=== PATIENT | male | born 1955 | race Caucasian/White ===

== ENCOUNTER 2018-05-28 09:01 | Observation (INO) ==
[2018-05-28] MEDS ORDERED: Aspirin 325 MG Tablet PO ONE (09:28)
--- NOTE | 2018-05-28 09:46 | ED ---
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 He states he was started on low-dose Cardizem to help prevent this but after wearing an official Holter monitor and having episodes of pauses his physician stopped the Cardizem. He states that his appointment with Dr. Valladares was moved up to Tuesday but given he started developing symptoms of generalized weakness and palpitations and chest pressure they advised him to come in now. He states his primary care physician is Dr. Sharma. He states his last stress test was a couple years ago and he believes okay. complaint: other (holter monitor with pauses per patient) Complete Quality Measures for STEMI Alert Patients STEMI Alert: No Onset (ago): day(s) Duration: intermittent Quality: tightness Pain radiation: none Relieving factors: nothing Exacerbating factors: movement Associated symptoms: other (general weakness) Treatments prior to arrival chest pain: none Related Data Home Medications Medication Instructions Recorded Confirmed atorvastatin 40 mg PO HS 05/28/18 05/28/18 levothyroxine 150 mcg PO DAILY 05/28/18 05/28/18 Allergies Allergy/AdvReac Type Severity Reaction Status Date / Time No Known Allergies Allergy Unverified 05/28/18 09:28 Review of Systems Except as stated in HPI: all other systems reviewed are negative [facility] Medical History Medical History High cholesterol (Acute) Hypotension (Acute) Hypothyroidism (Acute) SVT (supraventricular tachycardia) (Acute) Surgical History Surgical History History of hand surgery (Acute) Hx of tonsillectomy (Acute) Social History Social History Substance History: No History of Abuse Second Hand Smoke Exposure: No Smoking Status: Former smoker How Often Do You Have a Drink Containing Alcohol: Never Recent Travel in [facility] within the Last 8 Weeks: No Recent Out of Country Travel within the Last 8 Weeks: No Immunization History Tetanus Immunization: >5 Years Hx Influenza Vaccine This Season: No Exam Narrative Exam Narrative: GENERAL: 63-year-old male in no apparent distress SKIN: Focused skin assessment warm/dry. HEAD: Atraumatic. Normocephalic. EYES: Pupils equal and round. No scleral icterus. No injection or drainage. ENT: No nasal bleeding or discharge. Mucous membranes pink and moist. NECK: Trachea midline. No JVD. CARDIOVASCULAR: Regular rate and rhythm. No murmur appreciated. RESPIRATORY: No accessory muscle use. Clear to auscultation. Breath sounds equal bilaterally. MUSCULOSKELETAL: No obvious deformities. No clubbing. No cyanosis. NEUROLOGICAL: Awake and alert. Motor grossly within normal limits. Normal speech. PSYCHIATRIC: Appropriate mood and affect; insight and judgment normal. Course Hospital Course: Patient updated and agrees to admission Reevaluation(s) Reevaluation #1: patient updated and agrees to admit Consultations Consultation #1: dr sharma states had an episode with 5.3 second run of 2 non conducted p waves called pause and thinks more heart block, will fax strip Consultation #2: dr bhakta agrees to admit, requests consult to dr valladares be placed in computer Initial Documented Vital Signs Temperature 97.8 F 05/28/18 09:05 Pulse Rate 68 05/28/18 09:05 Respiratory Rate 16 05/28/18 09:05 Blood Pressure 156/85 H 05/28/18 09:05 Pulse Oximetry 97 05/28/18 09:05 Last Documented Vital Signs Temperature 97.8 F 05/28/18 09:05 Pulse Rate 64 05/28/18 09:30 Respiratory Rate 18 05/28/18 09:30 Blood Pressure 139/83 05/28/18 09:30 Pulse Oximetry 96 05/28/18 10:36 Medical Decision Making MDM Narrative Medical decision making narrative: Will check blood work, imaging and he will need admission to the hospital for further care. Differential Diagnosis Differential Diagnosis: Heart block, OH, musculoskeletal, gastritis, bradycardia Lab Data Lab results reviewed: Yes I reviewed the patient's lab results. Result diagrams: 05/28/18 09:30 05/28/18 09:30 Lab Results 05/28/18 05/28/18 05/28/18 Range/Units 09:30 09:30 09:30 WBC 6.8 (4.0-11.0) th/mm3 RBC 4.87 (4.50-5.90) mil/mm3 Hgb 15.3 (13.0-17.0) gm/dL Hct 44.9 (39.0-51.0) % MCV 92.2 (80.0-100.0) fL MCH 31.4 (27.0-34.0) pg MCHC 34.0 (32.0-36.0) % RDW 13.8 (11.6-17.2) % Plt Count 222 (150-450) th/mm3 MPV 7.9 (7.0-11.0) fL Neut % (Auto) 58.8 (16.0-70.0) % Lymph % (Auto) 27.8 (9.0-44.0) % [place] % (Auto) 10.0 H (0.0-8.0) % Eos % (Auto) 2.7 (0.0-4.0) % Baso % (Auto) 0.7 (0.0-2.0) % Neut # (Auto) 4.0 (1.8-7.7) th/mm3 Lymph # (Auto) 1.9 (1.0-4.8) th/mm3 [place] # (Auto) 0.7 (0.0-0.9) th/mm3 Eos # (Auto) 0.2 (0.0-0.4) th/mm3 Baso # (Auto) 0.0 (0.0-0.2) th/mm3 WBC Differential . Differential Comment Auto diff final PT 10.6 (9.8-11.6) sec INR 1.0 Ratio APTT 22.8 L (24.3-30.1) sec Sodium 141 (136-145) meq/L Potassium 4.4 (3.5-5.1) meq/L Chloride 108 H (98-107) meq/L Carbon Dioxide 27.3 (21.0-32.0) meq/L Anion Gap 6 (5-15) meq/L BUN 20 H (7-18) mg/dL Creatinine 0.99 (0.60-1.30) mg/dL Estimated GFR 76 L (>89) mL/min Random Glucose 91 (74-106) mg/dL Calcium 9.1 (8.5-10.1) mg/dL Magnesium 2.5 (1.5-2.5) mg/dL Total Bilirubin 0.6 (0.2-1.0) mg/dL AST 19 (15-37) U/L ALT 27 (12-78) U/L Alkaline Phosphatase 79 (45-117) U/L Total Creatine Kinase 209 (39-308) U/L CK-MB (CK-2) 1.0 (0.5-3.6) ng/mL Troponin I Less than 0.02 L (0.02-0.05) ng/mL Total Protein 7.5 (6.4-8.2) g/dL Albumin 3.9 (3.4-5.0) g/dL Imaging Data Attestation: I personally reviewed and interpreted this imaging study as follows : Radiologist's impression: Chest X-Ray 05/28/18 09:28 CONCLUSION: No acute cardiopulmonary disease. Discharge Plan Discharge Disposition Patient Disposition: 30 Still Patient Discharge Condition Condition: Stable Discharge Details Diagnosis: Abnormal Holter monitor finding, Chest pain, Generalized weakness Physicians Team ED Provider: Bridget Yang Primary Care Provider: UNKNOWN, Attending Provider: Federico Bhakta Other Providers: Alexia Valladares Status ED Status: Admitted Observation Patient
[2018-05-28 09:50] LABS: Baso % (Auto) 0.7 % (0.0-2.0); Eos # (Auto) 0.2 th/mm3 (0.0-0.4); Eos % (Auto) 2.7 % (0.0-4.0); Hematocrit 44.9 % (39.0-51.0); Hemoglobin 15.3 gm/dL (13.0-17.0); Lymph # (Auto) 1.9 th/mm3 (1.0-4.8); Lymph % (Auto) 27.8 % (9.0-44.0); Mean Corpuscular Hemoglobin 31.4 pg (27.0-34.0); Mean Corpuscular Volume 92.2 fL (80.0-100.0); Mean Platelet Volume 7.9 fL (7.0-11.0); Mono # (Auto) 0.7 th/mm3 (0.0-0.9); Neut % (Auto) 58.8 % (16.0-70.0); Platelet Count 222 th/mm3 (150-450); Red Blood Count 4.87 mil/mm3 (4.50-5.90); Red Cell Distribution Width 13.8 % (11.6-17.2); White Blood Count 6.8 th/mm3 (4.0-11.0)
--- NOTE | 2018-05-28 09:59 | XR ---
EXAM DATE: 05/28/2018 9:51 AM EDT AGE/SEX: 63 years / Male INDICATIONS: Left sided chest tightness and tachycardia. CLINICAL DATA: This is the patient's initial encounter. Patient reports that signs and symptoms have been present for 1 week and indicates a pain score of 0/10. MEDICAL/SURGICAL HISTORY: None. None. COMPARISON: No prior exams available for comparison. FINDINGS: A single AP view of the chest demonstrates the lungs to be symmetrically aerated without evidence of mass, infiltrate or effusion. There is mild bullous change in right lung apex. The cardiomediastinal contours are unremarkable. Osseous structures are intact. There are multiple overlying electrocardi ogram leads. CONCLUSION: No acute cardiopulmonary disease. Electronically signed by: Chidi Sosa MD 05/28/2018 9:58 AM EDT
[2018-05-28 10:04] LABS: Activated Partial Thrombo Time 22.8 sec (24.3-30.1); Prothrombin Time 10.6 sec (9.8-11.6)
[2018-05-28 10:10] LABS: Albumin 3.9 g/dL (3.4-5.0); Anion Gap 6 meq/L (5-15); Aspartate Aminotransferase 19 U/L (15-37); Blood Urea Nitrogen 20 mg/dL (7-18); Calcium 9.1 mg/dL (8.5-10.1); Carbon Dioxide 27.3 meq/L (21.0-32.0); Chloride 108 meq/L (98-107); Glomerular Filtration Rate 76 mL/min (>89); Glucose,Random 91 mg/dL (74-106); Magnesium 2.5 mg/dL (1.5-2.5); Potassium 4.4 meq/L (3.5-5.1); Sodium 141 meq/L (136-145)
[2018-05-28 10:11] LABS: Alanine Aminotransferase 27 U/L (12-78)
[2018-05-28 10:15] LABS: Alkaline Phosphatase 79 U/L (45-117); Creatine Kinase 209 U/L (39-308); Total Protein 7.5 g/dL (6.4-8.2)
[2018-05-28] MEDS ORDERED: Bisacodyl 10 MG Supp RECTAL PRN (12:42)
[2018-05-28] MEDS: Sod Chloride 0.9% Inj 1,000 ML IV.CONT SCH (14:19)
--- NOTE | 2018-05-28 15:41 | P.HPIM ---
History of Present Illness Primary Care Physician: UNKNOWN History of Present Illness: 63-year-old male history of hyperthyroidism, hyperlipidemia, recent diagnosis of SVT who is sent in by his primary care due to 5.5 second pause on Holter monitor. Patient reports feeling all right. Denies any chest pain or shortness of breath. Denies nausea vomiting. Patient was previously on diltiazem, however this has been discontinued 4 days ago. Patient denies any fevers, chills, nausea, vomiting, diarrhea, constipation. Patient has appointment to see Dr. Adair tomorrow. Patient reports that SVT previously occurred only while exercising. Review of Systems Performed and negative except for HPI and past medical history PMFSH - History History Provided By: Patient - Medical History Medical History: Medical History (Last Reviewed 05/28/18 @ 09:45 by Bridget Yang MD) High cholesterol Hypotension Hypothyroidism SVT (supraventricular tachycardia) - Surgical History Surgical History: Surgical History (Last Reviewed 05/28/18 @ 09:45 by Bridget Yang MD) History of hand surgery Hx of tonsillectomy - Tobacco History Second Hand Smoke Exposure: No Tobacco Use In Past 30 Days: No Smoking Status: Former smoker - Alcohol History How Often Do You Have a Drink Containing Alcohol: Never - Substance Use History Substance History: No History of Abuse - Travel History Recent Travel in the [place] Within the Last 8 Weeks: No Recent Travel Out of the Country Within the Last 8 Weeks: No - Immunization History Tetanus Immunization: >5 Years Hx Influenza Vaccine This Season: No Medications and Allergies Active Medications: Active Medications Al Hydroxide/Mg Hydroxide (Milk Of Magnesia Liq) 30 ml PO Q12H PRN PRN Reason: Mild Constipation Bisacodyl (Dulcolax Supp) 10 mg RECTAL DAILY PRN PRN Reason: SEVERE CONSITIPATION Sodium Chloride (Ns Inj) 1,000 mls @ 40 mls/hr IV.CONT .Q24H NORMA Last Admin: 05/28/18 14:19 Dose: 40 mls/hr Lactulose (Lactulose Liq) 30 ml PO DAILY PRN PRN Reason: SEVERE CONSITIPATION Sennosides (Senokot) 17.2 mg PO Q12H PRN PRN Reason: Moderate Constipation Sodium Chloride (Ns Flush) 2 ml IV.FLUSH UNSCH PRN PRN Reason: FLUSH AFTER USING IV ACCESS Last Admin: 05/28/18 09:37 Dose: 2 ml Temazepam (Restoril) 15 mg PO HS PRN PRN Reason: INSOMNIA Allergies Allergy/AdvReac Type Severity Reaction Status Date / Time No Known Allergies Allergy Unverified 05/28/18 09:28 Home Medications Medication Instructions Recorded Confirmed Type atorvastatin 40 mg PO HS 05/28/18 05/28/18 History levothyroxine 150 mcg PO DAILY 05/28/18 05/28/18 History Exam Vital signs: Vital Signs 05/28/18 09:05 05/28/18 09:28 05/28/18 09:30 Temperature 97.8 F Pulse Rate 68 64 Respiratory Rate 16 18 Blood Pressure 156/85 H 139/83 Pulse Oximetry 97 96 96 05/28/18 10:36 05/28/18 13:00 05/28/18 14:00 Temperature Pulse Rate 60 59 L Respiratory Rate 16 16 Blood Pressure 120/74 149/78 H Pulse Oximetry 96 98 99 Intake & Output 05/27/18 05/28/18 05/28/18 18:59 06:59 18:59 Weight 104.326 kg Narrative: GENERAL: Patient sitting up in bed. Appears comfortable. Alert and oriented 3. SKIN: Warm and dry. HEAD: Normocephalic. EYES: No scleral icterus. No injection or drainage. NECK: Supple, trachea midline. No JVD or lymphadenopathy. CARDIOVASCULAR: Regular rate and rhythm without murmurs, gallops, or rubs. RESPIRATORY: Breath sounds equal bilaterally. No accessory muscle use. GASTROINTESTINAL: Abdomen soft, non-tender, nondistended. MUSCULOSKELETAL: No cyanosis, or edema. BACK: Nontender without obvious deformity. No CVA tenderness. Results - Labs CBC & Chem 7: 05/28/18 09:30 05/28/18 09:30 Labs: Short CBC 05/28/18 Range/Units 09:30 WBC 6.8 (4.0-11.0) th/mm3 Hgb 15.3 (13.0-17.0) gm/dL Hct 44.9 (39.0-51.0) % Plt Count 222 (150-450) th/mm3 BMP 05/28/18 09:30 Sodium 141 Potassium 4.4 Chloride 108 H Carbon Dioxide 27.3 BUN 20 H Creatinine 0.99 Calcium 9.1 Cardiac Enzymes 05/28/18 Range/Units 09:30 Total Creatine Kinase 209 (39-308) U/L CK-MB (CK-2) 1.0 (0.5-3.6) ng/mL Troponin I Less than 0.02 L (0.02-0.05) ng/mL Liver Function 05/28/18 Range/Units 09:30 Total Bilirubin 0.6 (0.2-1.0) mg/dL AST 19 (15-37) U/L ALT 27 (12-78) U/L Alkaline Phosphatase 79 (45-117) U/L Albumin 3.9 (3.4-5.0) g/dL - Imaging Impressions Chest X-Ray 05/28/18 09:28 CONCLUSION: No acute cardiopulmonary disease. Caprini VTE Risk Assessment Caprini VTE Risk Assessment: Moderate/High Risk (score >= 2) Caprini Risk Assessment Model: Point Value = 1 Point Value = 2 Point Value = 3 Point Value = 5 Age 41-60 Minor surgery BMI > 25 kg/m2 Swollen legs Varicose veins or History of unexplained or recurrent spontaneous Oral contraceptives or hormone replacement Sepsis (< 1 month) Serious lung disease, including pneumonia (< 1 month) Abnormal pulmonary function Acute myocardial infarction Congestive heart failure (< 1 month) History of inflammatory bowel disease Medical patient at bed rest Age 61-74 Arthroscopic surgery Major open surgery (> 45 min) Laparoscopic surgery (> 45 min) Malignancy Confined to bed (> 72 hours) Immobilizing plaster cast Central venous access Age >= 75 History of VTE Family history of VTE Factor V Leiden Prothrombin [id number] Lupus anticoagulant Anticardiolipin antibodies Elevated serum homocysteine Heparin-induced thrombocytopenia Other congenital or acquired thrombophilia Stroke (< 1 month) Elective arthroplasty Hip, pelvis, or leg fracture Acute spinal cord injury (< 1 month) Prophylaxis Regimen: Total Risk Factor Score Risk Level Prophylaxis Regimen 0-1 Low Early ambulation 2 Moderate Order ONE of the following: *Sequential Compression Device (SCD) *Heparin 5000 units SQ BID 3-4 Higher Order ONE of the following medications: *Heparin 5000 units SQ TID *Enoxaparin/Lovenox 40 mg SQ daily (WT < 150 kg, CrCl > 30 mL/min) *Enoxaparin/Lovenox 30 mg SQ daily (WT < 150 kg, CrCl > 10-29 mL/min) *Enoxaparin/Lovenox 30 mg SQ BID (WT < 150 kg, CrCl > 30 mL/min) AND/OR *Sequential Compression Device (SCD) 5 or more Highest Order ONE of the following medications: *Heparin 5000 units SQ TID (Preferred with Epidurals) *Enoxaparin/Lovenox 40 mg SQ daily (WT < 150 kg, CrCl > 30 mL/min) *Enoxaparin/Lovenox 30 mg SQ daily (WT < 150 kg, CrCl > 10-29 mL/min) *Enoxaparin/Lovenox 30 mg SQ BID (WT < 150 kg, CrCl > 30 mL/min) AND *Sequential Compression Device (SCD) Assessment and Plan - Plan //5.5 second pause on Holter monitor //History of SVT = Chest x-ray with no acute disease. = EKG personally reviewed and unremarkable. No ST elevation. -Advised patient not to exercise. Will monitor in hospital. Consult electrophysiology Hyperlipidemia. Chronic. Continue home medications Hypothyroidism. Chronic. Check TSH. Continue home medications. Discharge Planning: Discharge home when cleared by cardiology. H&P: Quality - VTE Deep Vein Thrombosis/Pulmonary Embolism Present on Admission: Yes
[2018-05-28 17:56] LABS: Creatine Kinase 165 U/L (39-308)
--- NOTE | 2018-05-28 19:03 | MB ---
cc: Jose Ramon Juarez MD DATE: 05/28/2018 REASON FOR CONSULTATION: Abnormal Holter monitor. HISTORY OF PRESENT ILLNESS: The patient is a pleasant 63-year-old gentleman who sees my partner, Dr. Ford, who apparently has a history of SVT and has been wearing an outpatient Holter monitor. This monitor had remote telemetry and several times he has been called due to pauses seen on telemetry while he was sleeping, apparently up to 5 seconds. He started getting nervous because of these reports and mentioned it to his primary care physician, who directed him to the emergency department. He was actually asymptomatic during all of this. He does note his heart rate goes up fast while he bicycles and believes this is his SVT, but he was asymptomatic during the pauses, which occurred during sleep. He is currently asymptomatic. No chest pain, shortness of breath, lightheadedness, dizziness or syncope. PAST MEDICAL HISTORY: SVT. CURRENT MEDICATIONS: Lactulose, Restoril. ALLERGIES: NO KNOWN DRUG ALLERGIES. PHYSICAL EXAMINATION: VITAL SIGNS: Afebrile, pulse 60, respiratory rate 16, BP 115/73, saturating 95% on room air. GENERAL: Pleasant gentleman in no distress. NECK: No JVD. LUNGS: Clear to auscultation bilaterally. CARDIOVASCULAR: Regular rate and rhythm. No murmurs appreciated. ABDOMEN: Benign. EXTREMITIES: No edema. LABORATORY DATA: White count 6.8, hematocrit 44.9, platelets 222. INR is 1.0. Sodium 141, potassium 4.4, chloride 108, bicarbonate 27.3, BUN 20, creatinine 0.99, glucose 91. Cardiac enzymes are negative x 1. ECHOCARDIOGRAM: Shows sinus rhythm, with no acute ST or T-wave changes. IMPRESSION AND PLAN: Abnormal Holter monitor. The patient apparently had pauses on his Holter monitor for which he became concerned and is now in the emergency department, though he is asymptomatic. He will be kept n.p.o. past midnight in case Dr. Ford wishes to proceed with any procedure tomorrow. Otherwise, he is clinically stable and can continue his home medications without the diltiazem which was recently added. Thank you again for the opportunity to participate in this patient's care. MD JUAN JOSÉ Broderick/LULU , 04:25 PM , 07:01 PM
[2018-05-28] MEDS ORDERED: Temazepam 15 MG Capsule PO PRN (21:00)
[2018-05-28 21:15] LABS: Creatine Kinase 151 U/L (39-308)
[2018-05-29 07:20] LABS: Baso % (Auto) 0.7 % (0.0-2.0); Eos # (Auto) 0.2 th/mm3 (0.0-0.4); Eos % (Auto) 3.2 % (0.0-4.0); Hematocrit 43.2 % (39.0-51.0); Hemoglobin 14.9 gm/dL (13.0-17.0); Lymph # (Auto) 1.8 th/mm3 (1.0-4.8); Lymph % (Auto) 28.9 % (9.0-44.0); Mean Corpuscular HGB Conc 34.6 % (32.0-36.0); Mean Corpuscular Hemoglobin 32.3 pg (27.0-34.0); Mean Corpuscular Volume 93.4 fL (80.0-100.0); Mono # (Auto) 0.5 th/mm3 (0.0-0.9); Mono % (Auto) 7.9 % (0.0-8.0); Neut # (Auto) 3.7 th/mm3 (1.8-7.7); Neut % (Auto) 59.3 % (16.0-70.0); Platelet Count 218 th/mm3 (150-450); Red Blood Count 4.62 mil/mm3 (4.50-5.90); Red Cell Distribution Width 13.9 % (11.6-17.2); White Blood Count 6.3 th/mm3 (4.0-11.0)
[2018-05-29 07:45] LABS: Alanine Aminotransferase 25 U/L (12-78); Albumin 3.7 g/dL (3.4-5.0); Anion Gap 4 meq/L (5-15); Aspartate Aminotransferase 16 U/L (15-37); Blood Urea Nitrogen 18 mg/dL (7-18); Calcium 8.8 mg/dL (8.5-10.1); Carbon Dioxide 29.5 meq/L (21.0-32.0); Chloride 109 meq/L (98-107); Glomerular Filtration Rate 84 mL/min (>89); Glucose,Random 89 mg/dL (74-106); Potassium 4.4 meq/L (3.5-5.1); Sodium 142 meq/L (136-145)
[2018-05-29 07:48] LABS: Alkaline Phosphatase 76 U/L (45-117); Total Protein 6.9 g/dL (6.4-8.2)
--- NOTE | 2018-05-29 09:16 | P.PN ---
Subjective Interval history: Follow up Visit SVT, Holter monitor pauses. Patient examined today. Reports he is doing okay. Denies chest pain, palpitations, headaches, dizziness. Denies pain and discomfort. Denies SOB/ dyspnea. Denies fevers, chills, n/v/ d. Denies dysuria. Physical Exam Vital signs: Vital Signs 05/28/18 09:28 05/28/18 09:30 05/28/18 10:36 Temperature Pulse Rate 64 Respiratory Rate 18 Blood Pressure 139/83 Pulse Oximetry 96 96 96 05/28/18 13:00 05/28/18 14:00 05/28/18 15:54 Temperature 97.9 F Pulse Rate 60 59 L 60 Respiratory Rate 16 16 16 Blood Pressure 120/74 149/78 H 116/73 Pulse Oximetry 98 99 95 05/28/18 17:26 05/28/18 19:45 05/28/18 20:00 Temperature 98.5 F Pulse Rate 67 62 63 Respiratory Rate 17 Blood Pressure 135/69 Pulse Oximetry 95 05/28/18 23:56 05/29/18 00:00 05/29/18 04:00 Temperature 98.3 F 98 F Pulse Rate 56 L 72 62 Respiratory Rate 17 17 Blood Pressure 101/55 L 91/53 L Pulse Oximetry 95 94 L 05/29/18 04:29 05/29/18 07:26 05/29/18 07:57 Temperature 98.0 F Pulse Rate 55 L 64 61 Respiratory Rate 16 Blood Pressure 122/70 Pulse Oximetry 98 Intake & Output 05/28/18 05/29/18 05/29/18 18:59 06:59 18:59 Weight 104.326 kg Other: # Voids 1 3 Narrative: GENERAL: This is a well-nourished, well-developed patient, in no apparent distress. SKIN: Warm and dry HEENT: Normocephalic. Pupils equal round and reactive. Nose without bleeding. Airway patent. NECK: Trachea midline. No JVD. Supple. CARDIOVASCULAR: Regular rate and rhythm without murmurs, gallops, or rubs. RESPIRATORY: Clear to auscultation. Breath sounds equal bilaterally. No wheezes , rales, or rhonchi. GASTROINTESTINAL: Abdomen soft, non-tender, nondistended. Bowel Sounds normoactive x4. MUSCULOSKELETAL: Extremities without clubbing, cyanosis, or edema. NEUROLOGICAL: Awake and alert. Oriented to time, place, person. No focal neuro deficit. Moves all extremities. Normal speech. Results - Labs CBC & Chem 7: 05/29/18 06:56 05/29/18 06:56 Laboratory Results - last 24 hr 05/28/18 05/28/18 05/28/18 09:30 09:30 09:30 WBC 6.8 RBC 4.87 Hgb 15.3 Hct 44.9 MCV 92.2 MCH 31.4 MCHC 34.0 RDW 13.8 Plt Count 222 MPV 7.9 Neut % (Auto) 58.8 Lymph % (Auto) 27.8 [place] % (Auto) 10.0 H Eos % (Auto) 2.7 Baso % (Auto) 0.7 Neut # (Auto) 4.0 Lymph # (Auto) 1.9 [place] # (Auto) 0.7 Eos # (Auto) 0.2 Baso # (Auto) 0.0 WBC Differential . Differential Comment Auto diff final PT 10.6 INR 1.0 APTT 22.8 L Sodium 141 Potassium 4.4 Chloride 108 H Carbon Dioxide 27.3 Anion Gap 6 BUN 20 H Creatinine 0.99 Estimated GFR 76 L Random Glucose 91 Calcium 9.1 Magnesium 2.5 Total Bilirubin 0.6 AST 19 ALT 27 Alkaline Phosphatase 79 Total Creatine Kinase 209 CK-MB (CK-2) 1.0 Troponin I Less than 0.02 L Total Protein 7.5 Albumin 3.9 TSH 05/28/18 05/28/18 05/28/18 09:30 15:44 20:01 WBC RBC Hgb Hct MCV MCH MCHC RDW Plt Count MPV Neut % (Auto) Lymph % (Auto) [place] % (Auto) Eos % (Auto) Baso % (Auto) Neut # (Auto) Lymph # (Auto) [place] # (Auto) Eos # (Auto) Baso # (Auto) WBC Differential Differential Comment PT INR APTT Sodium Potassium Chloride Carbon Dioxide Anion Gap BUN Creatinine Estimated GFR Random Glucose Calcium Magnesium Total Bilirubin AST ALT Alkaline Phosphatase Total Creatine Kinase 165 151 CK-MB (CK-2) Troponin I Less than 0.02 L Less than 0.02 L Total Protein Albumin TSH 1.460 05/29/18 05/29/18 06:56 06:56 WBC 6.3 RBC 4.62 Hgb 14.9 Hct 43.2 MCV 93.4 MCH 32.3 MCHC 34.6 RDW 13.9 Plt Count 218 MPV 8.0 Neut % (Auto) 59.3 Lymph % (Auto) 28.9 [place] % (Auto) 7.9 Eos % (Auto) 3.2 Baso % (Auto) 0.7 Neut # (Auto) 3.7 Lymph # (Auto) 1.8 [place] # (Auto) 0.5 Eos # (Auto) 0.2 Baso # (Auto) 0.0 WBC Differential . Differential Comment Auto diff final PT INR APTT Sodium 142 Potassium 4.4 Chloride 109 H Carbon Dioxide 29.5 Anion Gap 4 L BUN 18 Creatinine 0.91 Estimated GFR 84 L Random Glucose 89 Calcium 8.8 Magnesium Total Bilirubin 0.6 AST 16 ALT 25 Alkaline Phosphatase 76 Total Creatine Kinase CK-MB (CK-2) Troponin I Total Protein 6.9 D Albumin 3.7 TSH - Imaging Impressions Chest X-Ray 05/28/18 09:28 CONCLUSION: No acute cardiopulmonary disease. Assessment and Plan - Plan 63-year-old male history of hyperthyroidism, hyperlipidemia, recent diagnosis of SVT who is sent in by his primary care due to 5.5 second pause on Holter monitor. History SVT He has 5.5 second pause on outpatient Holter - EKG reviewed unremarkable -DC Diltiazem, possibly causing the pause -Discuss exercise activity, biking. He may need to decrease intensity of exercise -EP consulted, Plan for EP study today with Dr. Ford Hyperlipidemia -Chronic. Continue home medications Hypothyroidism -Chronic. Check TSH. Continue home medications DVT Prop SCDs Code Status: Full Code Discussed Condition With: Patient, nursing, Dr. Bhakta Discharge Planning: DC home when cleared by EP cardiology
[2018-05-29] MEDS: Levothyroxine 150 MCG Tablet PO SCH (10:07)
[2018-05-29] MEDS ORDERED: Acetaminophen 325 MG Tablet PO PRN (11:11)
[2018-05-29] MEDS: Sod Chloride 0.9% Inj 1,000 ML IV.CONT SCH (19:26)
[2018-05-29] MEDS ORDERED: Ibuprofen 400 MG Tablet PO ONE (21:12)
--- NOTE | 2018-05-30 00:06 | ECG ---
Date Performed: 05/28/2018 Time Performed: 22:16:18 PTAGE: 63 years EKG: Sinus rhythm NORMAL ECG PREVIOUS TRACING : 05/28/2018 16.09 Since the previous tracing, no significant change noted DOCTOR: Kuldeep Ellsworth Interpretating Date/Time 05/30/2018 00:06:35
--- NOTE | 2018-05-30 00:24 | ECG ---
Date Performed: 05/28/2018 Time Performed: 16:09:37 PTAGE: 63 years EKG: SINUS BRADYCARDIA BORDERLINE ECG PREVIOUS TRACING : 05/28/2018 09.18 Since the previous tracing, no significant change noted DOCTOR: Kuldeep Ellsworth Interpretating Date/Time 05/30/2018 00:24:34
--- NOTE | 2018-05-30 00:33 | ECG ---
Date Performed: 05/28/2018 Time Performed: 09:18:48 PTAGE: 63 years EKG: Sinus rhythm NORMAL ECG NO PREVIOUS TRACING DOCTOR: Kuldeep Ellsworth Interpretating Date/Time 05/30/2018 00:31:04
[2018-05-30] MEDS: Levothyroxine 150 MCG Tablet PO SCH (05:34)
--- NOTE | 2018-05-30 07:54 | P.PN ---
Subjective Interval history: Feeling fine Physical Exam Vital signs: Vital Signs 05/29/18 07:57 05/29/18 11:46 05/29/18 16:00 Temperature 98.0 F 98.2 F 97.8 F Pulse Rate 61 63 65 Respiratory Rate 16 16 16 Blood Pressure 122/70 128/75 135/80 Pulse Oximetry 98 95 96 05/29/18 20:00 05/30/18 00:00 05/30/18 00:05 Temperature 98.5 F 98.3 F Pulse Rate 68 69 57 L Respiratory Rate 17 17 Blood Pressure 102/58 L 99/55 L Pulse Oximetry 94 L 97 05/30/18 03:50 05/30/18 03:58 Temperature 98.1 F Pulse Rate 73 62 Respiratory Rate 17 Blood Pressure 96/55 L Pulse Oximetry 96 Intake & Output 05/29/18 05/30/18 05/30/18 18:59 06:59 18:59 Intake Total 1000 / 1000 Balance 1000 / 1000 Intake: IV 1000 / 1000 NS Inj 1,000 ML @ 40 mls/hr IV. 1000 / 1000 CONT .Q24H [facility] Rx#:[id number] Other: # Voids 1 Date of Last Bowel Movement 05/29/18 # Bowel Movements 1 - Constitutional no acute distress - Routine HEENT Exam Head: Present: normocephalic Eye: Present: EOMI, PERRL ENT: Present: mucous membranes moist - Routine Respiratory Exam Present: CTA bilaterally - Routine Cardiovascular Exam Present: RRR, S1, S2 - Routine Abdominal Exam Present: soft - Routine Skin Exam Present: intact - Routine Neurological Exam Present: alert, oriented X3 Results - Labs CBC & Chem 7: 05/29/18 06:56 05/29/18 06:56 Assessment and Plan - Assessment (1) Supraventricular tachycardia Code(s): I47.1 - Supraventricular tachycardia Status: Acute Plan: Patient had multiple episodes of tachycardia in the last year. cardizem was given Due to severe raffaele and multiple pauses, it was DC EPS and possible ablation vs Observation discussed again this morning. Patient prefers to go home and readmitted on Tuesday for the procedure. can be DH Advise any tachy, chest pain to go to the ER (2) Bradycardia Code(s): R00.1 - Bradycardia, unspecified Status: Acute Plan: Sinus rhythm No pause observed since hospitalization
--- NOTE | 2018-05-30 08:13 | MB ---
cc: Alexia Ford MD, Jose R MD DATE: 05/29/2018 REASON FOR CONSULTATION: Pauses, AV block. HISTORY OF PRESENT ILLNESS: Mr. Tubbs is a 63-year-old gentleman with apparently no significant history of systemic illness referred an episode of palpitation and shortness of breath when exercising. He measured his heart rate, it was around 200 beats per minute. That happened on multiple occasions. He saw his primary doctor who prescribed him diltiazem. Subsequently, the dose was significantly increased. Two days ago, the gentleman was at home and was called because the Holter indicated multiple 5-second pauses. He has sinus bradycardia at baseline. This gentleman was admitted. I was consulted for further evaluation and management. The chart was reviewed. The patient was evaluated. ALLERGIES: None. SOCIAL HISTORY: He denies smoking and drinking. FAMILY HISTORY: Noncontributory to his current medical condition. MEDICATIONS AT HOME: He was on atorvastatin 40 mg a day and Levoxyl 150 mcg a day. During the hospitalization, ibuprofen was added. Also at home, he was on diltiazem. REVIEW OF SYSTEMS: Currently, he refers feeling better. No chest pain. No chest discomfort. No fever. PHYSICAL EXAMINATION: GENERAL: Alert, fully oriented. VITAL SIGNS: His blood pressure on evaluation 102/58, pulse 76, respiratory rate 18. LUNGS: Ventilated. CARDIOVASCULAR: S1, S2. No gallop. No murmur. ABDOMEN: Obese. No masses. EXTREMITIES: No edema. LABORATORY DATA: Electrocardiogram indicates sinus rhythm, sinus raffaele, no acute ST and T-wave changes. LABORATORY DATA: Hemoglobin 14.9, white blood cells 6.3. INR 1.0, potassium 4.4, creatinine 0.91. Troponin less than 0.02. TSH 1.46. ASSESSMENT AND RECOMMENDATIONS: Mr. Tubbs has baseline bradycardia. He was experiencing multiple episodes of tachyarrhythmia in the past years. The last time he was on a treadmill just starting working out, his heart shot to around 210 beats per minute. That lasted for close to an hour. He was put on Cardizem. Subsequently, the dose was increased progressively. As mentioned before, his baseline is sinus raffaele. A 5-second pause is observe. It is most likely because of medication. Since hospitalization, no episodes seen. I had a long conversation with him. I discussed with him the procedure of electrophysiology study, a possible ablation versus observation or discharging him home in the morning if there is no significant pause observed. At that point, this gentleman wants to think about his options. I had a long conversation with him. I will see him in the morning for further evaluation. MD TESSIE Gotti/TREV , 07:49 AM , 08:12 AM
--- NOTE | 2018-05-30 08:21 | P.PN ---
Subjective Interval history: Follow up for SVT, pauses. The patient reports feeling better today. He denies any chest pain, palpitations, shortness breath, lightheadedness, dizziness. No further events on telemetry overnight. He wants to go home. Physical Exam Vital signs: Vital Signs 05/29/18 11:46 05/29/18 16:00 05/29/18 20:00 Temperature 98.2 F 97.8 F 98.5 F Pulse Rate 63 65 68 Respiratory Rate 16 16 17 Blood Pressure 128/75 135/80 102/58 L Pulse Oximetry 95 96 94 L 05/30/18 00:00 05/30/18 00:05 05/30/18 03:50 Temperature 98.3 F Pulse Rate 69 57 L 73 Respiratory Rate 17 Blood Pressure 99/55 L Pulse Oximetry 97 05/30/18 03:58 05/30/18 08:00 Temperature 98.1 F 97.4 F L Pulse Rate 62 66 Respiratory Rate 17 14 Blood Pressure 96/55 L 111/70 Pulse Oximetry 96 94 L Intake & Output 05/29/18 05/30/18 05/30/18 18:59 06:59 18:59 Intake Total 1000 / 1000 Balance 1000 / 1000 Intake: IV 1000 / 1000 NS Inj 1,000 ML @ 40 mls/hr IV. 1000 / 1000 CONT .Q24H [facility] Rx#:[id number] Other: # Voids 1 Date of Last Bowel Movement 05/29/18 # Bowel Movements 1 Narrative: GENERAL: Well-nourished, well-developed middle-age male patient in [facility]. SKIN: Warm and dry. No rash. HEENT: Normocephalic. Atraumatic. Pupils equal and round. Mucous membranes pink and moist. CARDIOVASCULAR: Regular rate and rhythm. No murmur appreciated. RESPIRATORY: No accessory muscle use. Clear to auscultation. Breath sounds equal bilaterally. GASTROINTESTINAL: Abdomen soft, non-tender, nondistended. Normoactive bowel sounds x4. MUSCULOSKELETAL: No obvious deformities. Extremities without clubbing, cyanosis , or edema. NEUROLOGICAL: Awake and alert. No obvious cranial nerve deficits. Motor grossly within normal limits. Moving all extremities spontaneously. Normal speech. PSYCHIATRIC: Appropriate mood and affect; insight and judgment normal. Results - Labs CBC & Chem 7: 05/29/18 06:56 05/29/18 06:56 Assessment and Plan - Plan 63-year-old male history of hyperthyroidism, hyperlipidemia, recent diagnosis of SVT who is sent in by his primary care due to 5.5 second pause on Holter monitor. SVT: acute, also with 5.5 second pause on outpatient Holter -EKG reviewed and unremarkable -DC Diltiazem, likely etiology of the pause -Discussed exercise activity, biking, recommended to decrease intensity of exercise -EP Cardiology consulted, discussed with Dr. Ford, the patient has decided to f/up on Tuesday for outpatient EP +/- ablation -Dr. Ford requested echocardiogram to be done prior to discharge, outpatient f/up for results -Symptoms resolved Hyperlipidemia -Chronic. Continue home medications Hypothyroidism -Chronic. TSH wnl. Continue home meds DVT Prop SCDs Discharge Planning: Discharge patient to home Condition on discharge: Stable Heart Healthy diet as tolerated Ad Zoey activity Rx written: no new meds, discontinued diltiazem Follow-up with primary care physician and cardiology Dr. Ford
--- NOTE | 2018-05-30 14:22 | ECHRPT ---
Indication: CARDIOMYOPATHY CONCLUSIONS Normal left ventricular size. Wall thickness is normal. The left ventricular systolic function is low normal with an estimated ejection fraction in the rang e of 50- 55%. Mitral annular calcification is present. Aortic valve sclerosis is present. [id number] aortic valve regurgitation. There is trace tricuspid valve regurgitation. The estimated pulmonary arterial pressure is 33 mmHg. BP: / HR: Rhythm: MEASUREMENTS (Male / Female) Normal Values Technical Quality: 2D ECHO LV Diastolic Diameter PLAX 4.5 cm 4.2 - 5.9 / 3.9 - 5.3 cm IVS Diastolic Thickness 1.3 cm 0.6 - 1.0 / 0.6 - 0.9 cm LVPW Diastolic Thickness 0.6 cm 0.6 - 1.0 / 0.6 - 0.9 cm LV Relative Wall Thickness 0.4 RV Internal Dim ED PLAX 2.9 cm M-MODE AV Cusp Separation MM 2.6 cm DOPPLER Mitral E Point Velocity 45.9 cm/s Mitral A Point Velocity 63.2 cm/s Mitral E to A Ratio 0.7 TR Peak Velocity 240.0 cm/s TR Peak Gradient 23.0 mmHg Right Atrial Pressure 10.0 mmHg Pulmonary Artery Systolic Pressu 33.0 mmHg Right Ventricular Systolic Press 33.0 mmHg FINDINGS LEFT VENTRICLE Normal left ventricular size. Wall thickness is normal. The left ventricular systolic function is low normal with an estimated ejection fraction in the rang e of 50- 55%. RIGHT VENTRICLE Normal right ventricular size and systolic function. LEFT ATRIUM The left atrial size is normal. RIGHT ATRIUM The right atrial size is normal. ATRIAL SEPTUM Normal atrial septal thickness without atrial level shunting by limited color doppler interrogation. AORTA The aortic root and proximal ascending aorta are normal in size on limited imaging. MITRAL VALVE Mitral annular calcification is present. AORTIC VALVE Aortic valve sclerosis is present. [id number] aortic valve regurgitation. TRICUSPID VALVE There is trace tricuspid valve regurgitation. The estimated pulmonary arterial pressure is 33 mmHg. PULMONARY VALVE No pulmonary valve regurgitation or stenosis. VESSELS The inferior vena cava is normal in size. PERICARDIUM No pericardial effusion. Hoang Rader MD, FACC, [facility] (Electronically Signed) Final Date:30 May 2018 14:21
== END 2018-05-30 10:55 | disposition home or self-care (01) ==
LOC: NEPC 09:01 → NEDA 09:01 → NEPGCP 09:01
PROVIDERS: ADMIT Internal Medicine; ATTEND Internal Medicine